=== PATIENT | female | born 1975 | race Caucasian/White ===

== ENCOUNTER → 2017-03-12 | Outpatient (CLI) | payer OTHER ==
[2017-03-12 18:53] LABS: Basophils % (A) 1 %; Eosinophils # (A) 0.1 k/uL (0-0.7); Eosinophils % (A) 1 %; HCT 45.2 % (34.0-46.0); HGB 14.2 gm/dL (11.4-16.0); Lymphocytes # (A) 2.3 k/uL (1.0-4.8); Lymphocytes % (A) 29 %; MCH 29.5 pg (25.0-35.0); MCHC 31.5 g/dL (31.0-37.0); MCV 93.7 fL (80.0-100.0); Mean Platelet Volume 8.3; Monocytes # (A) 0.4 k/uL (0-1.0); Monocytes % (A) 5 %; Neutrophils % (A) 63 %; Platelet Count 215 k/uL (150-450); RBC 4.82 m/uL (3.80-5.40); RDW 12.9 % (11.5-15.5); WBC 7.9 k/uL (3.8-10.6)
[2017-03-12 19:00] LABS: ALT 54 U/L (9-52); AST 41 U/L (14-36); Albumin 4.4 g/dL (3.5-5.0); Alkaline Phosphatase 85 U/L (38-126); Anion Gap 8 mmol/L; Blood Urea Nitrogen 15 mg/dL (7-17); Calcium 9.6 mg/dL (8.4-10.2); Carbon Dioxide 28 mmol/L (22-30); Chloride 103 mmol/L (98-107); Cholesterol 176 mg/dL (<200); Glucose 93 mg/dL (74-99); HDL Cholesterol 71 mg/dL (40-60); LDL Cholesterol,Calculated 78 mg/dL (0-99); Potassium 4.2 mmol/L (3.5-5.1); Sodium 139 mmol/L (137-145); Total Bilirubin 0.3 mg/dL (0.2-1.3); Total Protein 7.3 g/dL (6.3-8.2); Triglycerides 133 mg/dL (<150)
[2017-03-12 19:13] LABS: T4, Free (Free Thyroxine) 1.11 ng/dL (0.78-2.19)
[2017-03-12 20:02] LABS: Erythrocyte Sedimentation Rate 8 mm/hr (0-20)
== END | disposition home or self-care (01) ==
LOC: MMGSC 16:24
PROVIDERS: ATTEND Family Medicine
DX: Z00.00 Encounter for general adult medical examination without abnormal findings (principal); M79.1 Myalgia; M25.50 Pain in unspecified joint
CPT/HCPCS: 36415; 80053; 80061; 84439; 84443; 85025; 85652

== ENCOUNTER → 2017-03-20 | Outpatient (CLI) | payer OTHER ==
--- NOTE | 2017-03-20 23:00 | XR ---
EXAMINATION TYPE: XR lumbar spine 2 or 3V DATE OF EXAM: 03/20/2017 CLINICAL HISTORY: Low back pain TECHNIQUE: Frontal and lateral images of the lumbar spine are obtained. COMPARISON: None FINDINGS: There are 5 lumbar type vertebral bodies identified. The lumbar spine shows satisfactory alignment without evidence of acute fracture or dislocation. There is mild to moderate disc space alen rowing most prominent posteriorly L5-S1 level otherwise vertebral body heights and disk space heights are within normal limits. The overlying soft tissue appears unremarkable. IMPRESSION: Disc space narrowing lumbosacral junction.
--- NOTE | 2017-03-20 23:01 | XR ---
EXAMINATION TYPE: XR Hip Bilateral Complete DATE OF EXAM: 03/20/2017 CLINICAL HISTORY: Bilateral hip pain TECHNIQUE: AP and frogleg views of the bilateral hips are obtained. COMPARISON: None. FINDINGS: There is no acute fracture/dislocation evident in either hip. The joint space in the bila teral hips appears within normal limits. There is left-sided pelvic phlebolith. IMPRESSION: Unremarkable study.
== END | disposition home or self-care (01) ==
LOC: RADXRMAIN 08:49
PROVIDERS: ATTEND Family Medicine
DX: M48.061 Spinal stenosis, lumbar region without neurogenic claudication (principal); M25.551 Pain in right hip; M25.552 Pain in left hip
CPT/HCPCS: 72100; 73521

== ENCOUNTER → 2019-03-25 | Outpatient (CLI) | payer OTHER ==
--- NOTE | 2019-03-25 15:13 | MR ---
EXAMINATION TYPE: MR hip RT wo con DATE OF EXAM: 03/25/2019 COMPARISON: None HISTORY: Right hip pain Multiplanar multiecho imaging of the pelvis and right hip was performed without contrast. Pelvic ring appears intact. Proximal femurs are intact. There is no evidence of hip dysplasia. There is on the T1 images a 7 mm area of decreased signal in the subcortical superior aspect of the right f emoral head. There is no fracture line. There is no evidence of collapse of the articular surface. Th ere is slight increased joint fluid on the right side compared to the left. There is no evidence of a pelvic mass. There is no free fluid in the pelvis. IMPRESSION: Slight increased joint fluid on the right side consistent with mild synovitis. Very small area of dec reased signal on T1 images in the superior right femoral head could be a small focus of avascular nec rosis.
== END | disposition home or self-care (01) ==
LOC: RADMRIMAIN 10:17
PROVIDERS: ATTEND Orthopaedic Surgery
DX: M25.551 Pain in right hip (principal); M25.552 Pain in left hip

== ENCOUNTER → 2020-01-15 | Outpatient (CLI) | payer OTHER, BC ==
--- NOTE | 2020-01-15 11:36 | FL ---
EXAMINATION TYPE: FL UGI air w esophagus DATE OF EXAM: 01/15/2020 COMPARISON: NONE HISTORY: Lump or dysphagia for 2 months TECHNIQUE: A single double contrast UGI study is performed. A total of 46 seconds of fluoroscopic ti me. 49 spot images saved to PACS. FINDINGS: Import And Export Clerk image of the abdomen shows no gross abnormality. The esophagus shows normal motility and emptying into the stomach. No evidence of hiatal hernia or s tricture noted. No suspicious intraluminal mass. No diverticulum. The stomach shows satisfactory distensibility, peristalsis, and mucosal folds. No evidence of any ma ss or ulcer disease. Moderate to severe gastroesophageal reflux seen during real-time performance of study extending to proximal thorax level. The duodenal bulb, sweep, and proximal small bowel loops are unremarkable. IMPRESSION: Moderate to severe gastroesophageal reflux.
== END | disposition home or self-care (01) ==
LOC: RADUSWWP 10:13
PROVIDERS: ATTEND Family Medicine
DX: K21.9 Gastro-esophageal reflux disease without esophagitis (principal)
CPT/HCPCS: 74246

== ENCOUNTER → 2020-06-06 | Outpatient (CLI) | payer BC, OTHER ==
--- NOTE | 2020-06-07 05:36 | MR ---
EXAMINATION TYPE: MR hip RT wo con DATE OF EXAM: 06/06/2020 COMPARISON: 03/25/2019 HISTORY: Rt hip pain Multiplanar multiecho imaging of the pelvis and right hip was performed without contrast. FINDINGS: Pelvic ring appears intact. Sacroiliac joints appear intact. There is no evidence of a pelvic mass. There is slight decreased signal in the superior aspect of the right femoral head in a small region w hich is the same or smaller than previous exam. There is no evidence of a fracture. Hip joint spaces are fairly normal. There are very small hip joint effusions. IMPRESSION: : Small area of decreased signal in the right femoral head could be tiny focus of avascular necrosis no t adversely changed compared to old exam. No collapse. Slight increased joint fluid unchanged and consistent with mild synovitis.
== END | disposition home or self-care (01) ==
LOC: RADMRIMAIN 09:14
PROVIDERS: ATTEND Orthopaedic Surgery
DX: M25.451 Effusion, right hip (principal)

== ENCOUNTER 2020-07-29 08:15 | Day surgery (SDC) | payer BC, OTHER ==
[2020-07-26 10:49] VITALS: BMI 26.6
[~2020-07-29 08:15] MED LIST: LACTATED RINGERS 1,000 ML IV SCH
[2020-07-29 08:41] VITALS: RESP 16; TEMP 98.2
[2020-07-29] MEDS ORDERED: PROPOFOL 10 MG/ML 20 ML VIAL IV ONE (09:27)
[2020-07-29] MEDS ORDERED: MIDAZOLAM 2 MG/2 ML VIAL ONE (09:27)
--- NOTE | 2020-07-29 09:54 | P.PCN ---
Date of Procedure: 07/29/20 Description of Procedure: BRIEF HISTORY: Patient is a 44-year-old female presenting for outpatient esophagogastroduodenoscopy for evaluation of GERD. Patient reports silent reflux with some sensation of fullness in her throat/globus. No nausea or vomiting. Some improvement on Protonix therapy. She does report seasonal ALLERGIES. PROCEDURE PERFORMED: Esophagogastroduodenoscopy with biopsy. PREOPERATIVE DIAGNOSIS: GERD, globus sensation. ESTIMATED BLOOD LOSS: Minimal. IV sedation per anesthesia. PROCEDURE: After informed consent was obtained, the patient was brought into the endoscopy unit. IV sedation was administered by Anesthesia under continuous monitoring. Initially the Olympus GIF-190 video endoscope was inserted into the mouth. Esophagus intubated without any difficulty. It was gradually advanced into the stomach and duodenum and carefully examined. The bulb and the second part of the duodenum appeared normal, with biopsies taken. The scope at this time was withdrawn to the stomach, adequately insufflated with air, and upon careful examination, mucosa of the antrum, body, cardia and the fundus appeared normal, except for some mild punctate erythema in the antrum and body suggestive of mild gastritis with biopsies taken. The scope was then withdrawn into the esophagus. The GE junction was located at 39 cm from the incisors. The esophagus appeared normal, with biopsies of the lower esophagus and midesophagus. There were no erosions or ulcerations seen and the patient tolerated the procedure well. IMPRESSION: 1. Mild gastritis. 2. Biopsies of the duodenum, antrum body, lower esophagus and midesophagus. RECOMMENDATIONS: The findings of this examination were discussed with the patient and her family. Okay to resume diet. Okay to resume medications. Await pathology from biopsies. Continue Protonix therapy. Recommend a trial of daily OTC ALLERGY medication for possible postnasal drip which was discussed with the patient underwent.
[2020-07-29 10:18] VITALS: BP 107/68; PULSE 59
== END 2020-07-29 10:44 | disposition home or self-care (01) ==
LOC: ORWHC2ENDO 08:15
PROVIDERS: ATTEND Internal Medicine
DX: K21.9 Gastro-esophageal reflux disease without esophagitis (principal); F45.8 Other somatoform disorders; K29.50 Unspecified chronic gastritis without bleeding; Z79.899 Other long term (current) drug therapy
CPT/HCPCS: 81025; 43239; J2250; J2704; 88305

== ENCOUNTER → 2021-02-25 | Outpatient (CLI) | payer BC ==
--- NOTE | 2021-02-26 08:29 | USB ---
Reason for exam: clinical finding. History: Family history of breast cancer in maternal grandmother at age 80. Indicated problem(s): palpable abnormality and lump or thickening in the right breast. Physical Findings: Nurse Summary: 2.5cm firm, thickened nodule (nurse dw). US Breast RT Right complete breast ultrasound includes all four quadrants, the retroareolar region and axilla. Finding demonstrates a 1.2 x 0.9 x 1.3cm cystic, benign, palpable lesion at 9 o'clock and a 1.8 x 1.3 x 1.3cm cystic, benign, palpable lesion at 10 o'clock. 5 month follow up mammogram to compare to the outside 01/23/21 mammogram. These results were verbally communicated with the patient and result sheet given to the patient on 02/25/21. ASSESSMENT: Probably benign, BI-RAD 3 RECOMMENDATION: Follow-up diagnostic mammogram of the right breast in 6 months.
== END | disposition home or self-care (01) ==
LOC: RADUSWWP 14:21
PROVIDERS: ATTEND Obstetrics & Gynecology
DX: N60.01 Solitary cyst of right breast (principal); Z80.3 Family history of malignant neoplasm of breast

== ENCOUNTER → 2021-05-30 | Outpatient (CLI) | payer BC ==
--- NOTE | 2021-06-04 12:09 | USB ---
Reason for exam: clinical finding. History: Family history of breast cancer in maternal grandmother at age 80. Indicated problem(s): palpable abnormality in the right breast. Physical Findings: A clinical breast exam by your physician is recommended on an annual basis and results should be correlated with mammographic findings. US Breast RT Right complete breast ultrasound includes all four quadrants, the retroareolar region and axilla. Finding demonstrates a 1.4 x 1.7 x 1.2cm oval cystic cluster at 9 o'clock, a 0.6 x 0.5 x 0.4cm oval, cystic lesion at 10 o'clock, a 1.2 x 1.3 x 1.0cm oval, irregular, cystic lesion at 10 o'clock, a 1.0 x 0.9 x 0.6cm oval, lobular, mixed lesion at 11 o'clock, a 0.6 x 0.6 x 0.5cm oval, cystic, avascular lesion at 11 o'clock probable debris filled cyst and a 1.1 x 0.9 x 0.7cm lymph node at the axilla. ASSESSMENT: Probably benign, BI-RAD 3 RECOMMENDATION: Ultrasound of the right breast in 6 months.
== END | disposition home or self-care (01) ==
LOC: RADUSWWP 09:00
PROVIDERS: ATTEND Obstetrics & Gynecology
DX: N63.10 Unspecified lump in the right breast, unspecified quadrant (principal); Z80.3 Family history of malignant neoplasm of breast

== ENCOUNTER → 2021-09-22 | Outpatient (CLI) | payer BC ==
--- NOTE | 2021-09-22 10:53 | MM ---
Reason for Exam: Additional evaluation requested from prior study. Last screening mammogram was performed 8 month(s) ago. Patient History: Menarche at age 11. First Full-Term at age 35. Late child-bearing (after 30). Premenopausal. Patient has history of breast feeding. Maternal grandmother had breast cancer, age 80. Risk Values: Migdalia 5 year model risk: 1.2%. NCI Lifetime model risk: 14.2%. Prior Study Comparison: 06/29/2017 Bilateral MG 3D screening mammo w/cad, [facility]. 10/14/2018 Bilateral MG 3D screening mammo w/cad, [facility]. 12/25/2019 Bilateral MG 3D screening mammo w/cad, [facility]. 01/23/2021 Bilateral MG 3D screening mammo w/cad, [facility]. Tissue Density: Right: The breast tissue is heterogeneously dense. This may lower the sensitivity of mammography. Findings: Analyzed By CAD. There is 1.7 cm oval circumscribed mass. Upper-outer aspect increased in size from prior studies. The more anterior oval circumscribed mass is not seen, interval aspiration performed per patient. Overall Assessment: Incomplete: need additional imaging evaluation, BI-RAD 0 Management: Diagnostic Breast Ultrasound of the right breast. Targeted ultrasound right breast now. Results were given to the patient verbally at the time of exam. Electronically signed and approved by: Isaac Loving M.D.
--- NOTE | 2021-09-22 11:44 | USB ---
Reason for Exam: Follow-up at short interval from prior study. Patient History: Menarche at age 11. First Full-Term at age 35. Late child-bearing (after 30). Premenopausal. Patient has history of breast feeding. Maternal grandmother had breast cancer, age 80. Risk Values: Migdalia 5 year model risk: 1.2%. NCI Lifetime model risk: 14.2%. Technique: Method: Targeted. Patient Position: Supine. Prior Study Comparison: 10/14/2018 Bilateral MG 3D screening mammo w/cad, [facility]. 12/25/2019 Bilateral MG 3D screening mammo w/cad, [facility]. 01/23/2021 Bilateral MG 3D screening mammo w/cad, [facility]. Findings: The upper outer quadrant of the right breast was scanned. Simple appearing 1.7 x 0.8 x 1.6 cm thin-walled cyst 9:00 Position 8 cm distance from nipple is slightly larger in size from recent prior ultrasound likely corresponding to mammogram abnormality. Additional scattered smaller benign thin-walled cysts throughout the right breast upper outer quadrant are again seen. No concerning new solid or cystic mass. Overall Assessment: Benign, BI-RAD 2 Management: Screening Mammogram of both breasts in 4 months. Back on schedule. Patient told of results at time of dictation. Electronically signed and approved by: Isaac Loving M.D.
== END | disposition home or self-care (01) ==
LOC: RADMAMWWP 10:04
PROVIDERS: ATTEND Obstetrics & Gynecology
DX: N60.01 Solitary cyst of right breast (principal); Z78.0 Asymptomatic menopausal state; Z80.3 Family history of malignant neoplasm of breast
CPT/HCPCS: 77061; 77065

== ENCOUNTER → 2022-01-29 | Outpatient (CLI) | payer BC ==
--- NOTE | 2022-01-30 08:36 | MM ---
Reason for Exam: Screening (asymptomatic). Last screening mammogram was performed 12 month(s) ago. Patient History: Menarche at age 11. First Full-Term at age 35. Late child-bearing (after 30). Premenopausal. Patient has history of breast feeding. Maternal grandmother had breast cancer, age 80. Risk Values: Migdalia 5 year model risk: 1.2%. NCI Lifetime model risk: 14.2%. Prior Study Comparison: 12/25/2019 Bilateral MG 3D screening mammo w/cad, [facility] [place]. 01/23/2021 Bilateral MG 3D screening mammo w/cad, [facility] [place]. 09/22/2021 Right MG 3D diag mammo w/cad RT, [facility]. Tissue Density: The breast tissue is heterogeneously dense. This may lower the sensitivity of mammography. Findings: Analyzed By CAD. Unchanged mass in the right lateral upper quadrant. There is no suspicious group of microcalcifications or new suspicious mass in either breast. Overall Assessment: Benign, BI-RAD 2 Management: Screening Mammogram of both breasts in 1 year. A clinical breast exam by your physician is recommended on an annual basis and results should be correlated with mammographic findings. [facility] will attempt to contact patient to return for supplemental views and ultrasound if indicated. Electronically signed and approved by: Caleb Santos DO
== END | disposition home or self-care (01) ==
LOC: RADMAMWWP 08:19
PROVIDERS: ATTEND Obstetrics & Gynecology
DX: Z12.31 Encounter for screening mammogram for malignant neoplasm of breast (principal); Z80.3 Family history of malignant neoplasm of breast
CPT/HCPCS: 77063; 77067